=== PATIENT | male | born 1940 | race Caucasian/White ===

== ENCOUNTER 2017-08-07 07:20 | Day surgery (SDC) | payer MEDICARE, BC ==
[~2017-08-07] VITALS: Ht 182.9 cm; Wt 94.5 kg
[2017-08-07] MEDS ORDERED: TEST75GE TOP (07:36)
[2017-08-07] MEDS ORDERED: ALLO100T PO (07:36)
[2017-08-07] MEDS ORDERED: MOME13HF3 INH (07:37)
[2017-08-07] MEDS ORDERED: CLOP75TA15 PO (07:38)
[2017-08-07] MEDS ORDERED: CLOT15CR73 TOP (07:39)
[2017-08-07] MEDS ORDERED: DILT240C10 PO (07:40)
[2017-08-07] MEDS ORDERED: DOXA4TAB2 PO (07:40)
[2017-08-07] MEDS ORDERED: DOXE10CA3 PO (07:41)
[2017-08-07] MEDS ORDERED: IBAN150T PO (07:42)
[2017-08-07] MEDS ORDERED: FLUO15OI15 TOP (07:42)
[2017-08-07 07:43] VITALS: BP 144/66
[2017-08-07] MEDS ORDERED: BIMA2.5D OP (07:43)
[2017-08-07] MEDS ORDERED: LEVO125T PO (07:43)
[2017-08-07] MEDS ORDERED: MOME17SP BOTHNARES (07:44)
[2017-08-07] MEDS ORDERED: MONT10TA21 PO (07:44)
[2017-08-07] MEDS ORDERED: OLME20TA14 PO (07:45)
[2017-08-07] MEDS ORDERED: PANT-47 PO (07:45)
[2017-08-07] MEDS ORDERED: SODI51CR TOP (07:46)
[2017-08-07] MEDS ORDERED: fentaNYL/PF 50MCG/1 ML 2ML syringe ONE (07:46)
[2017-08-07] MEDS ORDERED: MIDAZolam 5mg/5ml vial ONE (07:46)
[2017-08-07] MEDS ORDERED: KEN0.1O TP (07:47)
[2017-08-07] MEDS ORDERED: ROSU20TA PO (07:47)
[2017-08-07] MEDS ORDERED: ALBU18HF2 INH (07:48)
[2017-08-07] MEDS ORDERED: MULT-1172 PO (07:48)
[2017-08-07] MEDS ORDERED: OMEG-182 PO (07:50)
[2017-08-07] MEDS ORDERED: CA C1TAB95 PO (07:50)
[2017-08-07] MEDS ORDERED: VITA1CAP PO (07:51)
[2017-08-07 08:13] VITALS: BP 122/57
[2017-08-07 08:21] VITALS: BP 121/62
[2017-08-07 08:31] VITALS: BP 122/91
[2017-08-07 08:41] VITALS: BP 115/45
== END 2017-08-07 08:50 | disposition home or self-care (01) ==
LOC: GI LAB 07:20
PROVIDERS: ATTEND Internal Medicine Gastroenterology
DX: Z12.11 Encounter for screening for malignant neoplasm of colon (principal); D12.3 Benign neoplasm of transverse colon; K57.30 Diverticulosis of large intestine without perforation or abscess without bleeding
CPT/HCPCS: 45385; G0500; J2250; J3010; J7030; 88305; A4620